=== PATIENT | male | born 1985 | race Caucasian/White ===

== ENCOUNTER 2016-06-11 16:55 | Emergency (ER) | payer OTHER ==
[2016-06-11] MEDS ORDERED: HYDROcod/ACET 5/325 Prepack 6 PO STA (17:17)
[2016-06-11] MEDS ORDERED: KETOROLAC 60 MG/2 ML VIAL IM STA (17:17)
[2016-06-11] MEDS ORDERED: HYDROcod/ACET 5/325 Prepack 6 PO ONE (17:21)
[2016-06-11] MEDS ORDERED: KETOROLAC 60 MG/2 ML VIAL ONE (17:21)
== END 2016-06-11 18:13 | disposition home or self-care (01) ==
DX: G54.0 Brachial plexus disorders (principal); S42.254A Nondisplaced fracture of greater tuberosity of right humerus, initial encounter for closed fracture; M96.89 Other intraoperative and postprocedural complications and disorders of the musculoskeletal system; Y65.8 Other specified misadventures during surgical and medical care; Y92.238 Other place in hospital as the place of occurrence of the external cause; R03.0 Elevated blood-pressure reading, without diagnosis of hypertension

== ENCOUNTER 2016-06-17 | Emergency (ER) | payer OTHER | END 2016-06-17 20:56 | disposition home or self-care (01) ==

== ENCOUNTER 2017-04-11 17:15 | Emergency (ER) | payer OTHER ==
[2017-04-11 17:24] VITALS: BP 121/73
--- NOTE | 2017-04-11 17:34 | ED Physician Documentation ---
PD HPI WOUND RECHECK - Stated complaint Stated Complaint: STITCH REMOVAL - Chief complaint Chief Complaint: Wound - Histroy obtained from History obtained from: Patient - History of Present Illness Location: Right Lower Extremity Timing - onset: How many days ago (11) Associated symptoms: No: Fever Review of Systems Constitutional: denies: Fever, Chills Skin: reports: Laceration (s). denies: Rash, Lesions, Abrasion (s) Neurologic: reports: Other (No numbness or tingling to the right LE) PD PAST MEDICAL HISTORY - Past Medical History Past Medical History: No - Past Surgical History Past Surgical History: No - Present Medications Home Medications: Ambulatory Orders Medication Instructions Recorded Confirmed No Known Home Medications [No 03/31/17 04/11/17 Known Home Medications] - Allergies Allergies/Adverse Reactions: Allergies Allergy/AdvReac Type Severity Reaction Status Date / Time Penicillins Allergy Unknown Verified 03/31/17 21:43 - Social History Does the pt smoke?: No Smoking Status: Never smoker Does the pt drink ETOH?: Yes Does the pt have substance abuse?: No - Immunizations Immunizations are current?: Yes PD ED PE NORMAL - General General: Alert and oriented X 3, No acute distress, Well developed/nourished - HEENT HEENT: Atraumatic - Derm Derm: Other (Well healing lacertion to the right anterior vital C/W his stated history ) - Extremities Extremities: No deformity - Neuro Neuro: Alert and oriented X 3, No motor deficit, No sensory deficit Eye Opening: Spontaneous Motor: Obeys Commands Verbal: Oriented GCS Score: 15 Results - Vitals Vitals: Vital Signs - 24 hr 04/11/17 04/11/17 17:21 17:23 Temperature 36.8 C Heart Rate 65 Respiratory 16 Rate Blood Pressure 121/73 O2 Saturation 98 Oxygen O2 Source Room air Procedures - Suture/staple Removal (location) left leg Suture/staple removal: # sutures, No complications. No: Infected, Dehiscence PD MEDICAL DECISION MAKING - ED course Complexity details: d/w patient ED course: Removed the stitches to the LE. wound looks well. No fevers, no signs of infection. Steri strips placed. Pt given return precautions. Departure - Departure Disposition: 01 Home, Self Care Clinical Impression: Visit for wound check Condition: Good Instructions: Wound Care Follow-Up: JW ANGLIN [Primary Care Provider] - Comments: Return to the ER for any new or worsening symptoms
== END 2017-04-11 17:44 | disposition home or self-care (01) ==
LOC: ED 17:15
DX: S81.811D Laceration without foreign body, right lower leg, subsequent encounter (principal); X58.XXXD Exposure to other specified factors, subsequent encounter
CPT/HCPCS: 99283

== ENCOUNTER 2018-03-14 14:35 | Emergency (ER) | payer OTHER ==
[2018-03-14 15:08] LABS: BASOPHILS % (AUTO) 0.9 %; EOSINOPHILS # (AUTO) 0.2 10^3/uL (0.0-0.7); EOSINOPHILS % (AUTO) 4.7 %; HGB - HEMOGLOBIN 14.3 g/dL (14.0-18.0); LYMPHOCYTES # (AUTO) 2.1 10^3/uL (1.5-3.5); LYMPHOCYTES % (AUTO) 40.1 %; MEAN CORPUSCULAR HEMOGLOBIN 31.7 pg (27.0-31.0); MEAN CORPUSCULAR HGB CONC 33.3 g/dL (32.0-36.0); MEAN CORPUSCULAR VOLUME 95.1 fL (80.0-94.0); MEAN PLATELET VOLUME 8.3 fL (7.4-11.4); MONOCYTES # (AUTO) 0.3 10^3/uL (0.0-1.0); MONOCYTES % (AUTO) 6.5 %; NEUTROPHILS # (AUTO) 2.5 10^3/uL (1.5-6.6); NEUTROPHILS % (AUTO) 47.8 %; PLT - PLATELET COUNT 233 10^3/uL (130-450); RED BLOOD COUNT 4.53 10^6/uL (4.70-6.10); RED CELL DISTRIBUTION WIDTH 14.3 % (12.0-15.0); WHITE BLOOD COUNT 5.2 x10^3/uL (4.8-10.8)
[2018-03-14 15:21] LABS: ALBUMIN 4.3 g/dL (3.2-5.5); ALBUMIN/GLOBULIN RATIO 1.6 (1.0-2.2); BILIRUBIN,TOTAL 0.7 mg/dL (0.2-1.0); CALCIUM 9.6 mg/dL (8.5-10.3)
[2018-03-14 15:33] LABS: BILIRUBIN,URINE NEGATIVE (NEGATIVE); GLUCOSE, URINE (UA) NEGATIVE (NEGATIVE); KETONES,URINE (UA) NEGATIVE (NEGATIVE); LEUKOCYTE ESTERASE, URINE NEGATIVE (NEGATIVE); NITRITE,URINE NEGATIVE (NEGATIVE); OCCULT BLOOD,URINE NEGATIVE (NEGATIVE); PROTEIN,URINE NEGATIVE (NEGATIVE); UROBILINOGEN,URINE 0.2 (NORMAL) E.U./dL (NORMAL)
[2018-03-14 15:35] LABS: CLARITY,URINE CLEAR (CLEAR)
--- NOTE | 2018-03-14 16:52 | ED Physician Documentation ---
History of Present Illness - Stated complaint Stated Complaint: ABD BRUISING - Chief complaint Chief Complaint: Abd Pain - History obtained from History obtained from: Patient - History of Present Illness Timing: How many days ago (4) Pain level max: 3 Pain level now: 2 Improved by: rest Worsened by: palpation - Additonal information Additional information: L flank bruising after boxing a few days ago. Mild pain. no vomiting. no lightheadedness. no syncope. Review of Systems Constitutional: denies: Fever, Chills Throat: denies: Sore throat Cardiac: denies: Chest pain / pressure Respiratory: denies: Cough GI: denies: Vomiting, Diarrhea, Hematemesis, Bloody / black stool : denies: Dysuria Skin: denies: Rash Musculoskeletal: denies: Neck pain, Back pain PD PAST MEDICAL HISTORY - Past Medical History Past Medical History: No - Past Surgical History Past Surgical History: No - Present Medications Home Medications: Ambulatory Orders Medication Instructions Recorded Confirmed No Known Home Medications 03/31/17 04/11/17 - Allergies Allergies/Adverse Reactions: Allergies Allergy/AdvReac Type Severity Reaction Status Date / Time naproxen Allergy Unknown Verified 03/14/18 14:52 Penicillins Allergy Unknown Verified 03/14/18 14:52 - Living Situation Living Situation: reports: With family Living Arrangement: reports: At home - Social History Does the pt smoke?: No Smoking Status: Never smoker Does the pt drink ETOH?: Yes Does the pt have substance abuse?: No - Immunizations Immunizations are current?: Yes PD ED PE NORMAL - Vitals Vital signs reviewed: Yes - General General: Alert and oriented X 3, No acute distress - HEENT HEENT: Moist mucous membranes - Neck Neck: Supple, no meningeal sign - Cardiac Cardiac: RRR, Strong equal pulses - Respiratory Respiratory: No respiratory distress, Clear bilaterally - Abdomen Abdomen: Soft, Non tender, Non distended, Other (L low flank eccymosis 3x6cm. no peritoneal signs. no periumbilical or posterior ecchymosis.) - Derm Derm: Warm and dry - Neuro Neuro: Alert and oriented X 3 Results - Vitals Vitals: Vital Signs - 24 hr 03/14/18 14:47 Temperature 36 C L Heart Rate 51 L Respiratory 16 Rate Blood Pressure 122/79 O2 Saturation 95 Oxygen O2 Source Room air - Labs Labs: Laboratory Tests 03/14/18 03/14/18 03/14/18 15:01 15:01 15:25 WBC 5.2 RBC 4.53 L Hgb 14.3 Hct 43.1 MCV 95.1 H MCH 31.7 H MCHC 33.3 RDW 14.3 Plt Count 233 MPV 8.3 Neut # (Auto) 2.5 Lymph # (Auto) 2.1 [place] # (Auto) 0.3 Eos # (Auto) 0.2 Baso # (Auto) 0.0 Absolute Nucleated RBC 0.00 Nucleated RBC % 0.1 Sodium 141 Potassium 4.1 Chloride 104 Carbon Dioxide 29 Anion Gap 8.0 BUN 12 Creatinine 1.0 Estimated GFR (MDRD) 86 L Glucose 99 Calcium 9.6 Total Bilirubin 0.7 AST 22 ALT 19 Alkaline Phosphatase 65 Total Protein 7.0 Albumin 4.3 Globulin 2.7 Albumin/Globulin Ratio 1.6 Lipase 31 Urine Color YELLOW Urine Clarity CLEAR Urine pH 7.0 Ur Specific [place] 1.015 Urine Protein NEGATIVE Urine Glucose (UA) NEGATIVE Urine Ketones NEGATIVE Urine Occult Blood NEGATIVE Urine Nitrite NEGATIVE Urine Bilirubin NEGATIVE Urine Urobilinogen 0.2 (NORMAL) Ur Leukocyte Esterase NEGATIVE Ur Microscopic Review NOT INDICATED Urine Culture Comments NOT INDICATED Procedures - FAST exam (time) 1640 FAST exam: No: Free fluid RUQ, Free fluid LUQ, Free fluid suprapubic, Pericardial effusion PD MEDICAL DECISION MAKING - ED course Complexity details: considered differential, d/w patient ED course: Patient is a 32-year-old male who presents to the emergency department with left flank bruising after boxing a few days ago. Normal FAST exam. Normal lab testing. No peritoneal signs on exam. No tenderness in the splenic region or over the liver. No Hernandez Sandoval's or ayah signs. Appears to be a superficial ecchymosis. We will have him follow-up with his doctor for further care. Patient counseled regarding signs and symptoms for which I believe and urgent re-evaluation would be necessary. Patient with good understanding of and agreement to plan and is comfortable going home at this time This document was made in part using voice recognition software. While efforts are made to proofread this document, sound alike and grammatical errors may occur. Departure - Departure Disposition: 01 Home, Self Care Clinical Impression: Traumatic ecchymosis of abdominal wall Qualifiers: Encounter type: initial encounter Qualified Code(s): S30.1XXA - Contusion of abdominal wall, initial encounter Condition: Good Instructions: ED Contusion Soft Tissue Follow-Up: JW ANGLIN [Primary Care Provider] - As Needed Comments: This should heal without any difficulty. Return if you worsen. Your bedside ultrasound and laboratory testing are normal today.
[2018-03-14 17:03] VITALS: BP 115/85
== END 2018-03-14 17:03 | disposition home or self-care (01) ==
LOC: ED 14:35
DX: S30.1XXA Contusion of abdominal wall, initial encounter (principal); X58.XXXA Exposure to other specified factors, initial encounter; Y93.71 Activity, boxing
CPT/HCPCS: 36415; 80053; 81001; 81003; 83690; 85025; 87086; 99282; 99283